=== PATIENT | female | born 1965 | race Caucasian/White ===

== ENCOUNTER 2020-10-21 11:48 | Emergency (ER) | payer OTHER ==
[2020-10-21] MEDS ORDERED: PERCOCET 5-3251 EACH PO (13:52)
[2020-10-21] MEDS ORDERED: ENDOCET 5-3251 EACH PO (14:00)
[2020-10-28] MEDS ORDERED: ZOCOR40 MG PO (07:06)
[2020-10-28] MEDS ORDERED: OMEPRAZOLE20 M1 PO (07:07)
[2020-10-28] MEDS ORDERED: LEVOTHYROXINE PO (07:07)
[2021-03-15] MEDS ORDERED: LEVOTHYROXINE75 MCG PO (08:50)
[2021-03-15] MEDS ORDERED: OMEPRAZOLE20 M1 PO (08:53)
[2021-03-15] MEDS ORDERED: ESTER-C 1,0001 EACH PO (08:54)
[2021-03-18] MEDS ORDERED: HYDROCODON-ACE1 EAC2 PO (08:26)
== END 2020-10-21 14:08 | disposition home or self-care (01) ==
LOC: ER1 11:48
DX: S42.212A Unspecified displaced fracture of surgical neck of left humerus, initial encounter for closed fracture (principal); S42.252A Displaced fracture of greater tuberosity of left humerus, initial encounter for closed fracture; Z88.5 Allergy status to narcotic agent; W11.XXXA Fall on and from ladder, initial encounter; Y92.89 Other specified places as the place of occurrence of the external cause; Y99.0 Civilian activity done for income or pay
CPT/HCPCS: 73030; 73110; 99283

== ENCOUNTER → 2020-10-23 | Outpatient (CLI) | payer OTHER ==
[~2020-10-23] MED LIST: ENDOCET 5-3251 EACH PO; ESTER-C 1,0001 EACH PO; HYDROCODON-ACE1 EAC2 PO; LEVOTHYROXINE PO; LEVOTHYROXINE75 MCG PO; OMEPRAZOLE20 M1 PO; PERCOCET 5-3251 EACH PO; ZOCOR40 MG PO
== END ==
LOC: KOH-I 09:00 → CT 09:00 → KOH-I 09:07
DX: S42.302A Unspecified fracture of shaft of humerus, left arm, initial encounter for closed fracture (principal); S42.292A Other displaced fracture of upper end of left humerus, initial encounter for closed fracture; X58.XXXA Exposure to other specified factors, initial encounter
CPT/HCPCS: 73200

== ENCOUNTER → 2020-10-28 | Day surgery (SDC) | payer OTHER ==
[~2020-10-28] VITALS: Ht 170.2 cm; Wt 96.6 kg
[2020-10-28 06:56] LABS: HEMOGLOBIN 12.6 gm/dl (12.3-15.3); RED BLOOD COUNT 4.16 M/UL (4.00-5.10); WHITE BLOOD COUNT 6.8 K/UL (4.5-11.0)
[2020-10-28 07:10] LABS: BUN/CREATININE RATIO 19 (0-10)
== END | disposition home or self-care (01) ==
LOC: OR 06:16 → EDSTATUS 07:30 → OR 07:30
PROVIDERS: Orthopaedic Surgery
DX: S42.202A Unspecified fracture of upper end of left humerus, initial encounter for closed fracture (principal); S42.252A Displaced fracture of greater tuberosity of left humerus, initial encounter for closed fracture; S42.262A Displaced fracture of lesser tuberosity of left humerus, initial encounter for closed fracture; S42.292A Other displaced fracture of upper end of left humerus, initial encounter for closed fracture; E78.5 Hyperlipidemia, unspecified; E07.9 Disorder of thyroid, unspecified; K21.9 Gastro-esophageal reflux disease without esophagitis; Z79.899 Other long term (current) drug therapy; Z88.8 Allergy status to other drugs, medicaments and biological substances; Z87.891 Personal history of nicotine dependence; W10.8XXA Fall (on) (from) other stairs and steps, initial encounter; Y93.01 Activity, walking, marching and hiking; Y92.89 Other specified places as the place of occurrence of the external cause; Y99.0 Civilian activity done for income or pay
CPT/HCPCS: 36415; 71045; 73030; 76000; 80048; 85025; 86850; 86900; 86901; 93005; C1713; J0171; J0690; J1100; J1885; J2001; J2250; J2370; J2405; J2704; J2710; J2795; J3010; J7120

== ENCOUNTER → 2021-01-20 | Outpatient (CLI) | payer OTHER | LOC: KOH-I 08:36 | DX: M25.561 Pain in right knee (principal); S83.241A Other tear of medial meniscus, current injury, right knee, initial encounter | CPT/HCPCS: 73721 ==

== ENCOUNTER → 2021-03-15 | Outpatient (CLI) | payer OTHER ==
[2021-03-15 08:54] LABS: HEMOGLOBIN 13.9 gm/dl (12.3-15.3); RED BLOOD COUNT 4.49 M/UL (4.00-5.10); WHITE BLOOD COUNT 6.5 K/UL (4.5-11.0)
[2021-03-15 09:09] LABS: BUN/CREATININE RATIO 23 (0-10)
== END ==
LOC: OPSV2 08:00
PROVIDERS: Orthopaedic Surgery
DX: Z01.812 Encounter for preprocedural laboratory examination (principal); S83.241A Other tear of medial meniscus, current injury, right knee, initial encounter
CPT/HCPCS: 36415; 80048; 85025

== ENCOUNTER → 2021-03-18 | Day surgery (SDC) | payer OTHER, BC ==
[~2021-03-18] VITALS: Ht 170.2 cm; Wt 96.6 kg
== END | disposition home or self-care (01) ==
LOC: OR 07:05
PROVIDERS: Orthopaedic Surgery
PROC: 0SBC4ZZ Excision of Right Knee Joint, Percutaneous Endoscopic Approach (ICD-10-PCS; principal; 2021-03-18 08:45)
DX: S83.231A Complex tear of medial meniscus, current injury, right knee, initial encounter (principal); M22.41 Chondromalacia patellae, right knee; K21.9 Gastro-esophageal reflux disease without esophagitis; E78.5 Hyperlipidemia, unspecified; E03.9 Hypothyroidism, unspecified; E66.01 Morbid (severe) obesity due to excess calories; Z68.32 Body mass index [BMI] 32.0-32.9, adult; Z20.822 Contact with and (suspected) exposure to COVID-19; Z79.899 Other long term (current) drug therapy; Z88.5 Allergy status to narcotic agent; Z87.891 Personal history of nicotine dependence; W01.0XXA Fall on same level from slipping, tripping and stumbling without subsequent striking against object, initial encounter
CPT/HCPCS: J0171; J0690; J1100; J2001; J2250; J2405; J2704; J3010; J7120